=== PATIENT | male | born 1980 ===

== ENCOUNTER 2024-10-04 07:14 | Day surgery (SDC) | payer OTHER ==
[~2024-10-04] VITALS: Ht 172.7 cm; Wt 105.2 kg
[~2024-10-04 07:14] MED LIST: BENA20 PO; C COMPLEX1000 M1 PO; HUMALOG KW100 UNIT/1 SC; Lactated Ringer's 1,000 ML IV ONE; MULTI-VITAMIN1 EAC2 PO; TOCO1000 PO; Vitamin D1000 UNI1 PO; ZOCOR20 MG PO; propofoL 50 ML IV ONE
[2024-10-04] MEDS ORDERED: ASPI81CH (08:05)
[2024-10-04] MEDS ORDERED: Lactated Ringer's 1,000 ML IV ONE ×3 (08:39→09:51)
[2024-10-04] MEDS ORDERED: propofoL 50 ML IV ONE (09:25)
[2024-10-04 10:36] VITALS: BP 99/72
== END 2024-10-04 10:35 | disposition home or self-care (01) ==
LOC: ORSCSDS 07:14
PROVIDERS: Internal Medicine Gastroenterology
PROC: 0DB58ZX Excision of Esophagus, Via Natural or Artificial Opening Endoscopic, Diagnostic (ICD-10-PCS; principal; 2024-10-04 08:45)
PROC: 0DB68ZX Excision of Stomach, Via Natural or Artificial Opening Endoscopic, Diagnostic (ICD-10-PCS; principal; 2024-10-04 08:45)
PROC: 0DB98ZX Excision of Duodenum, Via Natural or Artificial Opening Endoscopic, Diagnostic (ICD-10-PCS; principal; 2024-10-04 08:45)
PROC: 0DBH8ZX Excision of Cecum, Via Natural or Artificial Opening Endoscopic, Diagnostic (ICD-10-PCS; principal; 2024-10-04 08:45)
PROC: 0D757ZZ Dilation of Esophagus, Via Natural or Artificial Opening (ICD-10-PCS; principal; 2024-10-04 08:45)
DX: R76.8 Other specified abnormal immunological findings in serum (principal); K62.5 Hemorrhage of anus and rectum; K29.80 Duodenitis without bleeding; D12.0 Benign neoplasm of cecum; K64.4 Residual hemorrhoidal skin tags; E10.21 Type 1 diabetes mellitus with diabetic nephropathy; Z96.41 Presence of insulin pump (external) (internal); Z79.82 Long term (current) use of aspirin; Z79.4 Long term (current) use of insulin; Z79.899 Other long term (current) drug therapy
CPT/HCPCS: 82947; 88305; 88342; J2704; J7120

== ENCOUNTER 2025-02-01 08:55 | Day surgery (SDC) | payer OTHER ==
[~2025-02-01] VITALS: Ht 172.7 cm; Wt 107.5 kg
[~2025-02-01 08:55] MED LIST changes: +ASPI81CH
[2025-02-01] MEDS ORDERED: PRAV20 (09:58)
[2025-02-01] MEDS ORDERED: Lactated Ringer's 1,000 ML IV ONE (10:55)
--- NOTE | 2025-02-01 12:11 | NUR ---
02/01/25 1211 Ever Jackson PT AWARE OF VITALS POST-OP VITALS. HE REMOVED MONITORS HIMSELF AND REFUSED FURTHER VITALS MONITORING. PT REFUSED HIS COPY OF D/C INSTRUCTIONS. PT DENIED DIZZINESS BUT APPEARED SLIGHTLY UNSTEADY. HE INSISTED ON DRESSING SELF AND WALKING OUT OF FACILITY TO ATTEND A MEETING.
[2025-02-01 12:21] VITALS: BP 110/49
== END 2025-02-01 11:54 | disposition home or self-care (01) ==
LOC: ORSCSDS 08:55
PROVIDERS: Internal Medicine Gastroenterology
PROC: 0DB98ZX Excision of Duodenum, Via Natural or Artificial Opening Endoscopic, Diagnostic (ICD-10-PCS; principal; 2025-02-01 10:45)
PROC: 0DB58ZX Excision of Esophagus, Via Natural or Artificial Opening Endoscopic, Diagnostic (ICD-10-PCS; principal; 2025-02-01 10:45)
PROC: 0DBA8ZX Excision of Jejunum, Via Natural or Artificial Opening Endoscopic, Diagnostic (ICD-10-PCS; principal; 2025-02-01 10:45)
DX: R74.01 Elevation of levels of liver transaminase levels (principal); E10.8 Type 1 diabetes mellitus with unspecified complications; Z96.41 Presence of insulin pump (external) (internal); Z79.82 Long term (current) use of aspirin; Z79.899 Other long term (current) drug therapy
CPT/HCPCS: 88305; J2704; J7120